=== PATIENT | male | born 1985 | race Caucasian/White ===

== ENCOUNTER 2018-09-16 13:19 | Inpatient (IN) | payer OTHER ==
[2018-09-16] MEDS ORDERED: ONDANSETRON 4 MG/2 ML VIAL ONE (14:19)
--- NOTE | 2018-09-16 14:19 | RAD REPORT ---
EXAM DESCRIPTION: RAD - Chest Single View - 09/16/2018 2:03 pm CLINICAL HISTORY: Dyspnea, cough, shortness of breath COMPARISON: None. TECHNIQUE: AP portable chest image was obtained 1356 hour . FINDINGS: Lung volumes are low. There is significant motion degradation. Portable technique, shallow inspiration and large body habitus limit examination. Central vasculature and lung markings are prominent. There is patchy opacification in the right hilum and medial right lung base. Patchy alveolar opacification seen in the lower left lung field. Heart s ize within normal limits for exam limitations. No pneumothorax or large pleural effusion. No acute ayesha ny abnormality seen. No acute aortic findings suspected. IMPRESSION: Significantly limited examination suspicious for pulmonary edema, failure or volume over load.
[2018-09-16] MEDS ORDERED: NA CHLORIDE 0.9% 1,000 ML ONE ×2 (14:20→15:00)
[2018-09-16] MEDS ORDERED: ACETAMINOPHEN 500 MG TAB ONE (14:20)
[2018-09-16 14:26] LABS: Protime INR 1.11
[2018-09-16] MEDS ORDERED: METHYLPREDNISOLONE 125 MG INJ ONE (14:28)
[2018-09-16] MEDS ORDERED: AZITHROMYCIN 500 MG/250 ML BAG ONE (14:28)
[2018-09-16] MEDS ORDERED: ALBUTEROL 2.5 MG/3 ML NEB SOL ONE (14:28)
[2018-09-16] MEDS ORDERED: CEFTRIAXONE/SWI 1gm 1 GM/10 ML SYR ONE ×2 (14:28→21:09)
[2018-09-16 14:37] LABS: Absolute Lymphocytes (CBC) 0.6 K/uL (0.7-4.9); Absolute Monocytes 0.8 K/uL (0.1-1.3); Absolute Neutrophil 9.6 K/uL (1.8-8.0); Basophils % 0.2 % (0-1.3); Eosinophils % 1.4 % (0-4.4); Lymphocytes % 5.3 % (15.3-44.8); MPV 8.3 fL (7.6-11.3); Monocytes % 7.4 % (3.3-12.3); RBC Red Blood Cell Count 4.59 M/uL (4.33-5.43)
[2018-09-16 14:41] LABS: ALT/SGPT 46 U/L (12-78); AST/SGOT 23 U/L (15-37); Albumin 2.8 g/dL (3.4-5.0); Alkaline Phosphatase 89 U/L (45-117); BUN Blood Urea Nitrogen 18 mg/dL (7-18); Bicarbonate 26 mmol/L (21-32); Bilirubin Direct 0.3 mg/dL (0-0.2); Bilirubin Total 0.8 mg/dL (0.2-1.0); Creatine Phosphokinase 88 U/L (39-308); Glucose Level 154 mg/dL (74-106); Lipase 77 U/L (73-393); Potassium 3.8 mmol/L (3.5-5.1); Protein, Total 6.7 g/dL (6.4-8.2); Sodium Level 141 mmol/L (136-145); Troponin (Emerg Dept Use Only) < 0.02 ng/mL (0.0-0.045)
--- NOTE | 2018-09-16 15:12 | RAD REPORT ---
EXAM DESCRIPTION: CT - Thorax Wo Con - 09/16/2018 2:58 pm CLINICAL HISTORY: Chest pain, dyspnea on exertion COMPARISON: None. TECHNIQUE: Axial 5 mm thick images of the chest were obtained without IV contrast. All CT scans are performed using dose optimization technique as appropriate and may include automated exposure control or mA/KV adjustment according to patient size. FINDINGS: Large masslike consolidation in the posterior right lung base. Air bronchograms are presen t. Bilateral perihilar airspace opacifications seen with air bronchogram formation. Scattered patchy airspace opacities are seen in the left upper lobe. No pleural thickening or pleural effusion. No pne umothorax. A few small nonspecific mediastinal lymph nodes are present. No hilar mass. No gross aortic or pulmon nancy artery finding suspected. Assessment is limited in the absence of IV contrast. No pericardial th ickening or effusion. No chest wall mass or abnormal axillary lymphadenopathy. Limited upper abdomen imaging shows fatty infiltration of the liver. IMPRESSION: Large masslike consolidation posterior gutter on the right typical for pneumonia. Bilateral perihilar airspace opacification which could be additional infiltrate sites or concurrent p ulmonary edema. Left lower lung field airspace opacification favored to be pneumonia. Fatty infiltration of the liver.
[2018-09-16 15:28] LABS: Blood Morphology Comment NOT SEEN (NOT SEEN); Platelet Estimate ADEQ; Urine White Blood Cell Casts DIFF
--- NOTE | 2018-09-16 15:28 | EDPHYS ---
Physician Documentation [facility] Name: Charan Vernon Age: 33 yrs Sex: Male : 1985 Arrival Date: 09/16/2018 Time: 13:22 Bed 17 Private MD: Mike Dsouza T ED Physician PlazaBrian mcnultyory HPI: 09/16 14:37 This 33 yrs old Male presents to ER via Wheelchair with complaints of Cough, jr8 Shortness Of Breath, Chest Pain. 14:37 The patient or guardian reports cough, that is intermittent, described as mild, with no jr8 sputum, difficulty breathing. Onset: The symptoms/episode began/occurred acutely, yesterday. 14:37 Severity of symptoms: At their worst the symptoms were moderate, in the emergency jr8 department the symptoms are unchanged. Modifying factors: The symptoms are alleviated by nothing, the symptoms are aggravated by nothing. Associated signs and symptoms: Pertinent positives: fever. The patient has not experienced similar symptoms in the past. The patient has not recently seen a physician. Historical: - Allergies: 13:41 No Known Allergies; aa5 - PMHx: 13:41 None; aa5 - PSHx: 13:41 "throat dilation"; aa5 - Immunization history:: Flu vaccine is up to date. - Social history:: Smoking status: Patient/guardian denies using tobacco. - Ebola Screening: : No symptoms or risks identified at this time. ROS: 14:37 Eyes: Negative for injury, pain, redness, and discharge, ENT: Negative for injury, jr8 pain, and discharge, Neck: Negative for injury, pain, and swelling, Abdomen/GI: Negative for abdominal pain, nausea, vomiting, diarrhea, and constipation, Back: Negative for injury and pain, MS/Extremity: Negative for injury and deformity, Skin: Negative for injury, rash, and discoloration, Neuro: Negative for headache, weakness, numbness, tingling, and seizure. 14:37 Constitutional: Positive for body aches, fever. 14:37 Cardiovascular: Positive for chest pain, Negative for edema, orthopnea, palpitations, paroxysmal nocturnal dyspnea. 14:37 Respiratory: Positive for cough, shortness of breath, wheezing. Exam: 14:37 Eyes: Pupils equal round and reactive to light, extra-ocular motions intact. Lids and jr8 lashes normal. Conjunctiva and sclera are non-icteric and not injected. Cornea within normal limits. Periorbital areas with no swelling, redness, or edema. ENT: Nares patent. No nasal discharge, no septal abnormalities noted. Tympanic membranes are normal and external auditory canals are clear. Oropharynx with no redness, swelling, or masses, exudates, or evidence of obstruction, uvula midline. Mucous membranes moist. Neck: Trachea midline, no thyromegaly or masses palpated, and no cervical lymphadenopathy. Supple, full range of motion without nuchal rigidity, or vertebral point tenderness. No Meningismus. Abdomen/GI: Soft, non-tender, with normal bowel sounds. No distension or tympany. No guarding or rebound. No evidence of tenderness throughout. Back: No spinal tenderness. No costovertebral tenderness. Full range of motion. Skin: Warm, dry with normal turgor. Normal color with no rashes, no lesions, and no evidence of cellulitis. MS/ Extremity: Pulses equal, no cyanosis. Neurovascular intact. Full, normal range of motion. Neuro: Awake and alert, GCS 15, oriented to person, place, time, and situation. Cranial nerves II-XII grossly intact. Motor strength 5/5 in all extremities. Sensory grossly intact. Cerebellar exam normal. Normal gait. 14:37 Cardiovascular: Rate: tachycardic, Rhythm: regular, Pulses: Pulses are 2+ in right radial artery and left radial artery. Heart sounds: normal, normal S1and S2, no S3 or S4, no murmur, no rub, no gallop, Edema: is not appreciated. 14:37 Respiratory: mild respiratory distress is noted, Respirations: labored breathing, tachypnea, Breath sounds: rhonchi, that are moderate, are heard diffusely. Vital Signs: 13:42 BP 99 / 60; Pulse 106; Resp 24 S; Temp 100.0(TE); Pulse Ox 94% on R/A; Weight 133.81 kg aa5 (R); Height 6 ft. 0 in. (182.88 cm) (R); Pain 10/10; 14:30 BP 106 / 65; Pulse 95; Resp 18; Pulse Ox 97% on 2 lpm NC; hj 15:30 BP 105 / 54; Pulse 103; Resp 18; Pulse Ox 95% on 2 lpm NC; hj 16:14 BP 104 / 60; Pulse 100; Resp 18; Pulse Ox 96% on 2 lpm NC; hj 13:42 Body Mass Index 40.01 (133.81 kg, 182.88 cm) aa5 MDM: 13:47 Patient medically screened. [facility] 15:19 Data reviewed: vital signs, nurses notes, lab test result(s), EKG, radiologic studies, jr CT scan, plain films. Data interpreted: Pulse oximetry: on room air is 94 %. Interpretation: normal. Counseling: I had a detailed discussion with the patient and/or guardian regarding: the historical points, exam findings, and any diagnostic results supporting the discharge/admit diagnosis, lab results, radiology results, the need for further work-up and treatment in the hospital. 15:26 Physician consultation: Ciaran Lagunas MD was called at 15:26, was contacted at 15:26, jr8 regarding admission, to the telemetry unit. consult, patient's condition, and will see patient. 09/16 13:48 Order name: Basic Metabolic Panel; Complete Time: 14:43 [facility] 09/16 13:48 Order name: Blood Culture Adult (2) [facility] 09/16 13:48 Order name: CBC with Diff; Complete Time: 15:35 [facility] 09/16 13:48 Order name: CPK; Complete Time: 14:43 [facility] 09/16 13:48 Order name: Lactate; Complete Time: 14:43 [facility] 09/16 13:48 Order name: LFT's; Complete Time: 14:43 [facility] 09/16 13:48 Order name: Lipase; Complete Time: 14:43 09/16 13:48 Order name: Procalcitonin; Complete Time: 15:10 09/16 13:48 Order name: Protime (+inr); Complete Time: 14:40 [facility] 09/16 13:48 Order name: Ptt, Activated; Complete Time: 14:40 [facility] 09/16 13:48 Order name: Troponin (emerg Dept Use Only); Complete Time: 14:43 09/16 13:48 Order name: Urine Microscopic Only [facility] 09/16 14:42 Order name: CBC Smear Scan [facility] 09/16 15:30 Order name: Manual Differential; Complete Time: 15:35 [facility] 09/16 13:48 Order name: Chest Single View XRAY; Complete Time: 14:40 09/16 13:48 Order name: Accucheck; Complete Time: 14:10 09/16 13:48 Order name: Cardiac monitoring; Complete Time: 13:50 09/16 13:48 Order name: EKG - Nurse/Tech; Complete Time: 13:50 09/16 13:48 Order name: IV Saline Lock - Large Bore; Complete Time: 13:51 09/16 13:48 Order name: Labs collected and sent; Complete Time: 14:10 09/16 13:48 Order name: O2 Per Protocol; Complete Time: 13:51 09/16 14:40 Order name: CT Chest Wo Con; Complete Time: 15:17 09/16 15:33 Order name: Influenza Screen (A EDMA 09/16 13:48 Order name: O2 Sat Monitoring; Complete Time: 13:51 Administered Medications: 13:50 Drug: Acetaminophen 1000 mg Route: PO; hj 14:52 Follow up: Response: No adverse reaction hj 14:10 Drug: NS 0.9% (30 ml/kg) 30 ml/kg Route: IV; Rate: bolus; Site: right antecubital; hj 16:28 Follow up: IV Status: Completed infusion hj 14:11 Drug: Zofran 4 mg Route: IVP; Site: right antecubital; hj 14:34 Follow up: Response: No adverse reaction hj 14:24 Drug: Albuterol 2.5 mg Route: Inhalation; hj 14:24 Drug: SOLU-Medrol 125 mg Route: IVP; Site: right antecubital; hj 14:34 Follow up: Response: No adverse reaction hj 14:24 Drug: Rocephin 1 grams Route: IV; Rate: calculated rate; Site: right antecubital; hj 16:15 Follow up: IV Status: Completed infusion hj 14:24 Drug: Zithromax 500 mg Route: IVPB; Infused Over: 1 hrs; Site: right antecubital; hj 16:15 Follow up: IV Status: Completed infusion hj 14:34 Drug: Albuterol 2.5 mg Route: Inhalation; hj 14:52 Drug: Albuterol 2.5 mg Route: Inhalation; Disposition: 17:15 Co-signature as Attending Physician, Rogelio Plaza MD. gs Disposition: 09/16/18 15:27 Hospitalization ordered by Ciaran Lagunas for Inpatient Admission. Preliminary diagnosis are Pneumonia due to other specified bacteria, Sepsis. - Bed requested for Telemetry/MedSurg (Inpatient). - Status is Inpatient Admission. hj - Condition is Fair. - Problem is new. - Symptoms have improved. UTI on Admission? No Signatures: Dispatcher [employer] EDMS Edith Wilson, REINALDO RN iw Nina Moreno RN RN aa5 Bhupinder Chowdary PA PA jr8 Germain Hawkins RN RN Rogelio Plaza MD MD Corrections: (The following items were deleted from the chart) 14:38 14:37 The patient or guardian reports cough, that is intermittent, described as mild, jr8 with no sputum, jr8 15:50 15:27 Hospitalization Ordered by Ciaran Lagunas MD for Inpatient Admission. Preliminary iw diagnosis is Pneumonia due to other specified bacteria; Sepsis. Bed requested for Telemetry/MedSurg (Inpatient). Status is Inpatient Admission. Condition is Fair. Problem is new. Symptoms have improved. UTI on Admission? No. jr8 16:30 15:50 09/16/2018 15:27 Hospitalization Ordered by Ciarna Lagunas MD for Inpatient hj Admission. Preliminary diagnosis is Pneumonia due to other specified bacteria; Sepsis. Bed requested for Telemetry/MedSurg (Inpatient). Status is Inpatient Admission. Condition is Fair. Problem is new. Symptoms have improved. UTI on Admission? No. iw
--- NOTE | 2018-09-16 15:28 | ER ---
Nurse's Notes [facility] Name: Charan Vernon Age: 33 yrs Sex: Male : 1985 Arrival Date: 09/16/2018 Time: 13:22 Bed 17 Private MD: Mike Dsouza T Diagnosis: Pneumonia due to other specified bacteria;Sepsis Presentation: 09/16 13:40 Presenting complaint: Patient states: cough, SOB, and chest pain that began yesterday. aa5 Tachypnea noted, pt appears uncomfortable and restless. Transition of care: patient was not received from another setting of care. Onset of symptoms was September 2018. Risk Assessment: Do you want to hurt yourself or someone else? Patient reports no desire to harm self or others. Care prior to arrival: None. 13:40 Method Of Arrival: Wheelchair aa5 13:40 Acuity: ELAN 2 aa5 13:44 Initial Sepsis Screen: Does the patient meet any 2 criteria? RR > 20 per min. Yes Does hj the patient have a suspected source of infection? Yes:. Triage Assessment: 13:44 General: Appears in no apparent distress. uncomfortable, obese, Behavior is calm, hj cooperative, appropriate for age. Respiratory: Reports shortness of breath Onset: The symptoms/episode began/occurred suddenly, the patient has mild shortness of breath. Historical: - Allergies: 13:41 No Known Allergies; aa5 - PMHx: 13:41 None; aa5 - PSHx: 13:41 "throat dilation"; aa5 - Immunization history:: Flu vaccine is up to date. - Social history:: Smoking status: Patient/guardian denies using tobacco. - Ebola Screening: : No symptoms or risks identified at this time. Screenin:43 Abuse screen: Denies threats or abuse. Denies injuries from another. Nutritional hj screening: No deficits noted. Tuberculosis screening: No symptoms or risk factors identified. Fall Risk None identified. Assessment: 13:43 Pain: Complains of pain in chest. Cardiovascular: Reports chest pain, Rhythm is. hj Respiratory: Airway is patent Respiratory effort is even, unlabored, Respiratory pattern is regular, symmetrical, Breath sounds are clear. 13:43 General: Appears in no apparent distress. uncomfortable, Behavior is calm, cooperative, hj appropriate for age. Neuro: Level of Consciousness is awake, alert, obeys commands, Oriented to person, place, time, situation, Appropriate for age. GI: No signs and/or symptoms were reported involving the gastrointestinal system. : No signs and/or symptoms were reported regarding the genitourinary system. EENT: No signs and/or symptoms were reported regarding the EENT system. Derm: No signs and/or symptoms reported regarding the dermatologic system. Musculoskeletal: No signs and/or symptoms reported regarding the musculoskeletal system. 14:30 Reassessment: Patient and/or family updated on plan of care and expected duration. Pain hj level reassessed. Patient is alert, oriented x 3, equal unlabored respirations, skin warm/dry/pink. awaiting POc; Patient states feeling better. Patient states symptoms have improved. 16:12 Reassessment: Patient and/or family updated on plan of care and expected duration. Pain hj level reassessed. Patient is alert, oriented x 3, equal unlabored respirations, skin warm/dry/pink. awaiting call back from RN;. Vital Signs: 13:42 BP 99 / 60; Pulse 106; Resp 24 S; Temp 100.0(TE); Pulse Ox 94% on R/A; Weight 133.81 kg aa5 (R); Height 6 ft. 0 in. (182.88 cm) (R); Pain 10/10; 14:30 BP 106 / 65; Pulse 95; Resp 18; Pulse Ox 97% on 2 lpm NC; hj 15:30 BP 105 / 54; Pulse 103; Resp 18; Pulse Ox 95% on 2 lpm NC; hj 16:14 BP 104 / 60; Pulse 100; Resp 18; Pulse Ox 96% on 2 lpm NC; hj 13:42 Body Mass Index 40.01 (133.81 kg, 182.88 cm) aa5 ED Course: 13:22 Patient arrived in ED. rg4 13:23 Mike Dsouza MD is Private Physician. rg4 13:40 Triage completed. aa5 13:41 Arm band placed on. aa5 13:43 Germain Hawkins, REINALDO is Primary Nurse. hj 13:44 Patient has correct armband on for positive identification. Placed in gown. Bed in low hj position. Call light in reach. Side rails up X 1. 13:47 [facility] jr8 13:47 Rogelio Plaza MD is Attending Physician. jr8 13:59 EKG done, by electroencephalograph technologist. [facility] 14:01 X-ray completed. Portable x-ray completed in exam room. Patient tolerated procedure sw well. 14:01 No provider procedures requiring assistance completed. Inserted saline lock: 20 gauge hj in right antecubital area, using aseptic technique. Blood collected. 14:05 Chest Single View XRAY In Process Unspecified. EDMS 14:17 Initial lab(s) drawn, by me, sent to lab. First set of blood cultures drawn by me, hj Second set of blood cultures drawn by me. 14:[address] vr 14:58 CT completed. Patient tolerated procedure well. Patient moved back from CT. nj 14:59 CT Chest Wo Con In Process Unspecified. EDMS 15:26 Ciaran Lagunas MD is Hospitalizing Provider. jr8 16:27 Patient admitted, IV remains in place. intact. hj Administered Medications: 13:50 Drug: Acetaminophen 1000 mg Route: PO; hj 14:52 Follow up: Response: No adverse reaction hj 14:10 Drug: NS 0.9% (30 ml/kg) 30 ml/kg Route: IV; Rate: bolus; Site: right antecubital; hj 16:28 Follow up: IV Status: Completed infusion hj 14:11 Drug: Zofran 4 mg Route: IVP; Site: right antecubital; hj 14:34 Follow up: Response: No adverse reaction hj 14:24 Drug: Albuterol 2.5 mg Route: Inhalation; hj 14:24 Drug: SOLU-Medrol 125 mg Route: IVP; Site: right antecubital; hj 14:34 Follow up: Response: No adverse reaction hj 14:24 Drug: Rocephin 1 grams Route: IV; Rate: calculated rate; Site: right antecubital; hj 16:15 Follow up: IV Status: Completed infusion hj 14:24 Drug: Zithromax 500 mg Route: IVPB; Infused Over: 1 hrs; Site: right antecubital; hj 16:15 Follow up: IV Status: Completed infusion hj 14:34 Drug: Albuterol 2.5 mg Route: Inhalation; hj 14:52 Drug: Albuterol 2.5 mg Route: Inhalation; hj Outcome: 15:27 Decision to Hospitalize by Provider. jr8 16:27 Admitted to Tele accompanied by tech, family with patient, via wheelchair, room 423, hj with oxygen, with chart, Report called to REINALDO Mcfarlane 16:27 Condition: stable 16:27 Instructed on the need for admit, Demonstrated understanding of instructions. 16:30 Patient left the ED. sis Signatures: Dispatcher [employer] EDMS Nina Moreno, RN RN aa5 Bev Ellis Josh, PA PA jr8 Warren, Shannon sw Joaquin, Henry, RN RN hj Garcia, Rubi 4 Alcon Morales, Sandi 3 Corrections: (The following items were deleted from the chart) 13:45 13:40 Presenting complaint: Patient states: cough, SOB, and chest pain that began aa5 yesterday. aa5 13:45 13:40 Acuity: ELAN 3 aa5 aa5 16:14 16:14 BP 105 / 54; Pulse 103bpm; Resp 18bpm; Pulse Ox 95% 2 lpm Nasal Cannula; sis alegre
[2018-09-16] MEDS: NA CHLORIDE 0.9% 1,000 ML IV SCH ×2 (16:49→21:06)
[2018-09-16] MEDS: ENOXAPARIN 40 MG/0.4 ML SQ SCH (16:50)
[2018-09-16] MEDS ORDERED: POTASSIUM CL SA 10 MEQ TAB PO ONE (17:00)
--- NOTE | 2018-09-16 17:26 | EKG ---
Test Date: 2018-09-16 Test Time: 13:49:46 Maintenance Mechanic Engine: MAX MEASUREMENT RESULTS: Intervals: Rate: 100 IN: 140 QRSD: 88 QT: 324 QTc: 417 [place]: P: 47 IN: 140 QRS: -6 T: 14 INTERPRETIVE STATEMENTS: Normal sinus rhythm Normal ECG No previous ECG available for comparison Electronically Signed On 09-16-18 17:25:08 [employer] by David Levy
[2018-09-16 18:28] VITALS: BMI 41.4
[2018-09-16] MEDS: IBUPROFEN 400 MG TAB PO PRN ×2 (18:47→23:03)
--- NOTE | 2018-09-16 19:29 | P.HP ---
Certification for Inpatient Patient admitted to: Inpatient Practitioner: I am a practitioner with admitting privileges, knowledge of patient current condition, hospital course, and medical plan of care. Services: Services provided to patient in accordance with Admission requirements found in Title 42 Section 412.3 of the Code of Federal Regulations Patient History Date of Service: 09/16/18 Primary Care Provider: None Reason for admission: shortness of breath History of Present Illness: This is a 33-year-old male with a past medical history admitted for chest pain and trouble catching his breath for the past few days. He reports progressively worsening cough, weakness for the past 2-3 days. He states that started in the right upper quadrant area of the abdomen, moved up to the chest, no complaints of chest tightness. He also reports subjective fevers and chills. He brought himself to the ER. In the ER, he was found to be slightly hypertensive with blood pressure 99/60, elevated pro calcitonin, elevated WBC count left shift and satting 94% on room air. His chest x-ray was positive for suspected pneumonia, CT chest done in the ER was positive for bilateral pneumonia with consolidation. In the ER, patient received Rocephin and Zithromax along with IV fluids. At the time of my exam, patient was alert oriented x3, in mild distress secondary to chest tightness/pain and cough, and was hemodynamically stable. Allergies No Known Allergies Allergy (Unverified 09/16/18 16:27) Home Medications: Omeprazole [Prilosec] 40 mg PO DAILY 09/16/18 Sertraline HCl 50 mg PO DAILY 09/16/18 - Past Medical/Surgical History Has patient received pneumonia vaccine in the past: No Diabetic: No -: GERD -: Throat Stricture -: Throat Dilatation - Social History Smoking Status: Never smoker Alcohol use: Yes CD- Drugs: No Caffeine use: No Place of Residence: Home Review of Systems 10-point ROS is otherwise unremarkable Physical Examination - Vital Signs Temperature: 97.6 F Blood Pressure: 120/61 Pulse: 106 Respirations: 18 Pulse Ox (%): 95 - Physical Exam General: Alert, In no apparent distress, Oriented x3 HEENT: Atraumatic, PERRLA, Mucous membr. moist/pink, EOMI, Sclerae nonicteric Neck: Supple, 2+ carotid pulse no bruit, No LAD, Without JVD or thyroid abnormality Respiratory: Diminished Cardiovascular: Regular rate/rhythm, Normal S1 S2 Gastrointestinal: Normal bowel sounds, No tenderness Musculoskeletal: No tenderness Integumentary: No rashes Neurological: Normal gait, Normal speech, Normal strength at 5/5 x4 extr, Normal tone, Normal affect Lymphatics: No axilla or inguinal lymphadenopathy - Studies Laboratory Data (last 24 hrs) 09/16/18 14:00: PT 13.0 H, INR 1.11, APTT 32.3 09/16/18 14:00: WBC 11.3 H, Hgb 13.4 L, Hct 40.0, Plt Count 187 09/16/18 14:00: Sodium 141, Potassium 3.8, BUN 18, Creatinine 1.05, Glucose 154 H, Total Bilirubin 0.8, AST 23, ALT 46, Alkaline Phosphatase 89, Lipase 77 Assessment and Plan - Problems (Diagnosis) (1) Bilateral pneumonia Onset Date: 09/17/18 Current Visit: Yes Status: Acute Qualifiers: Pneumonia type: due to unspecified organism Lung location: unspecified part of lung Qualified Code(s): J18.9 - Pneumonia, unspecified organism (2) Sepsis Onset Date: 09/17/18 Current Visit: Yes Status: Acute Qualifiers: Sepsis type: sepsis due to unspecified organism Qualified Code(s): A41.9 - Sepsis, unspecified organism - Plan This is a 33 yr old male with: Bilateral pneumonia (Acute) J18.9 Sepsis (Acute) A41.9 IV antiobiotics with Rocephin and Zithromax. sepsis protocol, IV fluids Hemodynamically stable at this time. Continue to monitor Labs tomorrow morning DVT prophylaxis: Lovenox GI prophylaxis: None Diet: Regular Disposition: Pending symptomatic improvement - Advance Directives Does patient have a Living Will: No Does patient have a Durable POA for Healthcare: No
[2018-09-16] MEDS ORDERED: CEFTRIAXONE 1 GM/NS 50 ML 1 GM/50 ML BAG IV SCH (21:00)
[2018-09-16 22:38] LABS: Urine Appearance CLEAR; Urine Bilirubin NEGATIVE (NEG); Urine Blood NEGATIVE (NEG); Urine Color YELLOW; Urine Glucose 3+ (NEG); Urine Protein NEGATIVE (NEG); Urine pH 6.5 (5.0-7.0)
[2018-09-16 22:41] LABS: Urine Microscopic Reflex NO UMIC
[2018-09-17 04:14] LABS: Absolute Lymphocytes (CBC) 0.7 K/uL (0.7-4.9); Absolute Monocytes 0.9 K/uL (0.1-1.3); Absolute Neutrophil 12.9 K/uL (1.8-8.0); Basophils % 0.1 % (0-1.3); Hematocrit 37.2 % (39.6-49.0); Lymphocytes % 4.9 % (15.3-44.8); MPV 8.1 fL (7.6-11.3); Monocytes % 6.1 % (3.3-12.3); RBC Red Blood Cell Count 4.22 M/uL (4.33-5.43)
[2018-09-17 04:29] LABS: Albumin 2.3 g/dL (3.4-5.0); Bilirubin Total 0.4 mg/dL (0.2-1.0); Phosphorus 1.8 mg/dL (2.5-4.9); Potassium 4.5 mmol/L (3.5-5.1); Protein, Total 6.2 g/dL (6.4-8.2)
[2018-09-17] MEDS: POTASS/SODIUM PHOSPHATE 1 PKT POWD.PACK PO SCH ×3 (05:21→07:03)
[2018-09-17] MEDS: IBUPROFEN 400 MG TAB PO PRN ×4 (05:23→20:24)
[2018-09-17] MEDS: PANTOPRAZOLE 40MG TABLET PO SCH (06:13)
[2018-09-17] MEDS: SERTRALINE HCL 50 MG TAB PO SCH (08:44)
[2018-09-17] MEDS: ENOXAPARIN 40 MG/0.4 ML SQ SCH (08:44)
[2018-09-17] MEDS: AZITHROMYCIN IV 500 MG in NA CHLORIDE 0.9% 250 ML IVPB SCH (08:44)
[2018-09-17] MEDS: CEFTRIAXONE/SWI 1gm 1 GM/10 ML SYR IV SCH ×2 (08:45→20:18)
--- NOTE | 2018-09-17 16:08 | P.PN ---
Subjective Date of Service: 09/17/18 Primary Care Provider: None Chief Complaint: shortness of breath Subjective: No C/O voiced, Improving Patient seen and examined at bedside. No family at bedside. Chart reviewed and case discussed with nursing staff. Reports improvement. Denies any chest pain this morning, shortness of breath is improved, states he is feeling better, though not back to baseline yet. Review of Systems 10-point ROS is otherwise unremarkable Physical Examination - Vital Signs Temperature: 97.6 F Blood Pressure: 120/61 Pulse: 106 Respirations: 18 Pulse Ox (%): 95 - Physical Exam General: Alert, In no apparent distress, Oriented x3 HEENT: Atraumatic, PERRLA, EOMI Neck: Supple, JVD not distended Respiratory: Clear to auscultation bilaterally, Normal air movement Cardiovascular: Regular rate/rhythm, Normal S1 S2 Gastrointestinal: Normal bowel sounds, No tenderness Musculoskeletal: No tenderness Integumentary: No rashes Neurological: Normal speech, Normal tone, Normal affect Lymphatics: No axilla or inguinal lymphadenopathy Assessment And Plan - Current Problems (Diagnosis) (1) Bilateral pneumonia Onset Date: 09/17/18 Current Visit: Yes Status: Acute Qualifiers: Pneumonia type: due to unspecified organism Lung location: unspecified part of lung Qualified Code(s): J18.9 - Pneumonia, unspecified organism (2) Sepsis Onset Date: 09/17/18 Current Visit: Yes Status: Acute Qualifiers: Sepsis type: sepsis due to unspecified organism Qualified Code(s): A41.9 - Sepsis, unspecified organism - Plan This is a 33 yr old male with: Bilateral pneumonia (Acute) J18.9 Sepsis (Acute) A41.9 Improving Continue IV antibiotics with Rocephin and Zithromax, day #2. sepsis protocol, IV fluids Hemodynamically stable at this time. Continue to monitor Pending cultures, no growth 24 hr DVT prophylaxis: Lovenox GI prophylaxis: None Diet: Regular Disposition: Pending symptomatic improvement. Likely discharge home in the next 24-48 hr on oral azithromycin and Augmentin to complete a 12 day course.
[2018-09-17] MEDS: NA CHLORIDE 0.9% 1,000 ML IV SCH ×2 (16:21→22:30)
[2018-09-18] MEDS: NA CHLORIDE 0.9% 1,000 ML IV SCH ×3 (04:44→18:30)
[2018-09-18] MEDS: IBUPROFEN 400 MG TAB PO PRN ×4 (04:44→18:51)
[2018-09-18 04:56] LABS: Absolute Lymphocytes (CBC) 1.2 K/uL (0.7-4.9); Absolute Monocytes 1.5 K/uL (0.1-1.3); Absolute Neutrophil 15.8 K/uL (1.8-8.0); Basophils % 0.1 % (0-1.3); Eosinophils % 0.3 % (0-4.4); Hematocrit 37.9 % (39.6-49.0); Lymphocytes % 6.7 % (15.3-44.8); MPV 8.1 fL (7.6-11.3); Monocytes % 8.3 % (3.3-12.3); RBC Red Blood Cell Count 4.38 M/uL (4.33-5.43)
[2018-09-18 05:08] LABS: ALT/SGPT 38 U/L (12-78); AST/SGOT 24 U/L (15-37); Albumin 2.3 g/dL (3.4-5.0); Alkaline Phosphatase 101 U/L (45-117); BUN Blood Urea Nitrogen 26 mg/dL (7-18); Bicarbonate 27 mmol/L (21-32); Bilirubin Total 0.3 mg/dL (0.2-1.0); Glucose Level 123 mg/dL (74-106); Phosphorus 2.8 mg/dL (2.5-4.9); Potassium 3.8 mmol/L (3.5-5.1); Protein, Total 6.1 g/dL (6.4-8.2); Sodium Level 143 mmol/L (136-145)
[2018-09-18] MEDS ORDERED: POTASSIUM CL SA 10 MEQ TAB PO ONE (05:18)
[2018-09-18] MEDS: PANTOPRAZOLE 40MG TABLET PO SCH (05:38)
--- NOTE | 2018-09-18 08:20 | RAD REPORT ---
EXAM DESCRIPTION: [facility] Single View09/18/2018 6:41 am CLINICAL HISTORY: Chest pain COMPARISON: September 2010 FINDINGS: No significant change in the right basilar consolidation. Additional bilateral pulmonary opacities have mildly improved. Heart is normal size
[2018-09-18] MEDS: AZITHROMYCIN IV 500 MG in NA CHLORIDE 0.9% 250 ML IVPB SCH (09:34)
[2018-09-18] MEDS: SERTRALINE HCL 50 MG TAB PO SCH (09:35)
[2018-09-18] MEDS: ENOXAPARIN 40 MG/0.4 ML SQ SCH (09:35)
[2018-09-18] MEDS: CEFTRIAXONE/SWI 1gm 1 GM/10 ML SYR IV SCH (09:35)
[2018-09-18] MEDS: FLUTICASONE 50MCG NASAL SPRAY NAS SCH ×2 (12:27→20:05)
[2018-09-18] MEDS: LACTOBACILLUS/ACIDOPHILUS TAB PO SCH ×2 (13:31→20:05)
--- NOTE | 2018-09-18 17:56 | RAD REPORT ---
EXAM DESCRIPTION: US - Abdomen Exam Complete - 09/18/2018 5:32 pm CLINICAL HISTORY: Abdominal pain. abdominal pain COMPARISON: No comparisons FINDINGS: Diffuse fatty liver is present. No focal liver lesions or intrahepatic biliary dilatation is seen. The gallbladder demonstrates no gallstones, pericholecystic fluid or gallbladder wall thickening. Co mmon bile duct is normal in caliber measuring 5 millimeters. Both kidneys are normal in size, shape and echotexture. No hydronephrosis, focal lesion of concern or perinephric fluid. The spleen is normal in size measuring 12 cm. The pancreas and aorta are obscured by bowel gas. The visualized aspects of the IVC are grossly normal. IMPRESSION: Diffuse fatty liver.
--- NOTE | 2018-09-18 18:41 | P.PN ---
Subjective Date of Service: 09/18/18 Primary Care Provider: None Chief Complaint: shortness of breath Subjective: Improving Patient seen and examined at bedside. No family at bedside. Chart reviewed and case discussed with nursing staff. Reports improvement. Denies any chest pain this morning, shortness of breath is improved, states he is feeling better, though not back to baseline yet. Review of Systems 10-point ROS is otherwise unremarkable Physical Examination - Vital Signs Temperature: 98.7 F Blood Pressure: 156/87 Pulse: 82 Respirations: 18 Pulse Ox (%): 93 - Physical Exam General: Alert, In no apparent distress, Oriented x3 HEENT: Atraumatic, PERRLA, EOMI Neck: Supple, JVD not distended Respiratory: Clear to auscultation bilaterally, Normal air movement Cardiovascular: Regular rate/rhythm, Normal S1 S2 Gastrointestinal: Normal bowel sounds, No tenderness Musculoskeletal: No tenderness Integumentary: No rashes Neurological: Normal speech, Normal tone, Normal affect Lymphatics: No axilla or inguinal lymphadenopathy Assessment And Plan - Current Problems (Diagnosis) (1) Bilateral pneumonia Onset Date: 09/17/18 Current Visit: Yes Status: Acute Qualifiers: Pneumonia type: due to unspecified organism Lung location: unspecified part of lung Qualified Code(s): J18.9 - Pneumonia, unspecified organism (2) Sepsis Onset Date: 09/17/18 Current Visit: Yes Status: Acute Qualifiers: Sepsis type: sepsis due to unspecified organism Qualified Code(s): A41.9 - Sepsis, unspecified organism - Plan This is a 33 yr old male with: Bilateral pneumonia (Acute) J18.9 Sepsis (Acute) A41.9 Improving Continue IV antibiotics with Rocephin and Zithromax, day #3. sepsis protocol, IV fluids Hemodynamically stable at this time. Continue to monitor Pending cultures, no growth 24 hr DVT prophylaxis: Lovenox GI prophylaxis: None Diet: Regular Disposition: Pending symptomatic improvement. Likely discharge home in the next 24-48 hr on oral azithromycin and Augmentin to complete a 12 day course.
[2018-09-18] MEDS: Levofloxacin500mg IV 500 MG/100 ML BAG IV SCH (20:06)
[2018-09-19] MEDS: NA CHLORIDE 0.9% 1,000 ML IV SCH ×2 (03:58→15:29)
[2018-09-19] MEDS: IBUPROFEN 400 MG TAB PO PRN ×4 (03:59→22:15)
[2018-09-19 05:49] LABS: ALT/SGPT 50 U/L (12-78); AST/SGOT 26 U/L (15-37); Albumin 2.3 g/dL (3.4-5.0); Alkaline Phosphatase 96 U/L (45-117); BUN Blood Urea Nitrogen 16 mg/dL (7-18); Bicarbonate 27 mmol/L (21-32); Bilirubin Total 0.6 mg/dL (0.2-1.0); Glucose Level 152 mg/dL (74-106); Potassium 3.9 mmol/L (3.5-5.1); Protein, Total 6.1 g/dL (6.4-8.2); Sodium Level 138 mmol/L (136-145)
[2018-09-19 05:56] LABS: Absolute Monocytes 0.8 K/uL (0.1-1.3); Basophils % 0.1 % (0-1.3); Eosinophils % 1.1 % (0-4.4); Hematocrit 38.9 % (39.6-49.0); Lymphocytes % 6.4 % (15.3-44.8); MPV 7.8 fL (7.6-11.3); Monocytes % 5.5 % (3.3-12.3); RBC Red Blood Cell Count 4.53 M/uL (4.33-5.43)
[2018-09-19] MEDS: PANTOPRAZOLE 40MG TABLET PO SCH (06:09)
[2018-09-19] MEDS ORDERED: POTASSIUM CL SA 10 MEQ TAB PO ONE (06:30)
[2018-09-19 08:37] LABS: Platelet Estimate ADEQ; Toxic Granulation 2+; Urine White Blood Cell Casts DIFF
[2018-09-19 08:38] LABS: Blood Morphology Comment NOTED (NOT SEEN); Polychromasia 1+
[2018-09-19] MEDS: ENOXAPARIN 40 MG/0.4 ML SQ SCH (08:46)
[2018-09-19] MEDS: LACTOBACILLUS/ACIDOPHILUS TAB PO SCH ×2 (08:46→21:14)
[2018-09-19] MEDS: FLUTICASONE 50MCG NASAL SPRAY NAS SCH ×2 (08:46→21:15)
[2018-09-19] MEDS: SERTRALINE HCL 50 MG TAB PO SCH (08:47)
--- NOTE | 2018-09-19 12:57 | RAD REPORT ---
EXAM DESCRIPTION: RAD - Chest Pa And Lat (2 Views) - 09/19/2018 12:43 pm CLINICAL HISTORY: Pneumonia COMPARISON: Portable chest September 18, CT chest September 16 TECHNIQUE: PA and lateral views of the chest were obtained. FINDINGS: The lungs are slightly underinflated. Left lung base pneumonia changes are fractionally i mproved. Right lung base pneumonia changes are not significantly different. Pleural effusion on the r ight has increased. Heart size is normal and central vasculature is within normal limits. No pneumot horax. No acute bony finding noted. No aortic abnormality. IMPRESSION: Worsening right-sided pleural effusion without clear change to the lung base pneumonia. Smaller left lung base pneumonia is fractionally improved.
--- NOTE | 2018-09-19 17:24 | P.PN ---
Subjective Date of Service: 09/19/18 Primary Care Provider: None Chief Complaint: shortness of breath Patient seen and examined at bedside. No family at bedside. Chart reviewed and case discussed with nursing staff. Reports improvement. Denies any chest pain this morning, shortness of breath is improved, states he is feeling better, though not back to baseline yet. Review of Systems 10-point ROS is otherwise unremarkable Physical Examination - Vital Signs Temperature: 99.1 F Blood Pressure: 138/82 Pulse: 90 Respirations: 18 Pulse Ox (%): 92 - Physical Exam General: Alert, In no apparent distress, Oriented x3 HEENT: Atraumatic, PERRLA, EOMI Neck: Supple, JVD not distended Respiratory: Clear to auscultation bilaterally, Normal air movement Cardiovascular: Regular rate/rhythm, Normal S1 S2 Gastrointestinal: Normal bowel sounds, No tenderness Musculoskeletal: No tenderness Integumentary: No rashes Neurological: Normal speech, Normal tone, Normal affect Lymphatics: No axilla or inguinal lymphadenopathy Assessment And Plan - Current Problems (Diagnosis) (1) Bilateral pneumonia Onset Date: 09/17/18 Current Visit: Yes Status: Acute Qualifiers: Pneumonia type: due to unspecified organism Lung location: unspecified part of lung Qualified Code(s): J18.9 - Pneumonia, unspecified organism (2) Sepsis Onset Date: 09/17/18 Current Visit: Yes Status: Acute Qualifiers: Sepsis type: sepsis due to unspecified organism Qualified Code(s): A41.9 - Sepsis, unspecified organism - Plan This is a 33 yr old male with: Bilateral pneumonia (Acute) J18.9 Sepsis (Acute) A41.9 Improving Discontinued Continue IV Rocephin and Zithromax, day #3. Continue IV Levaquin, day 2. sepsis protocol, IV fluids Hemodynamically stable at this time. Continue to monitor Blood cultures no growth. Repeat chest x-ray with worsening right pleural effusion. We will go ahead and repeat a CT chest, will get pulmonary consult. DVT prophylaxis: Lovenox GI prophylaxis: None Diet: Regular Disposition: Pending symptomatic improvement.
--- NOTE | 2018-09-19 18:05 | RAD REPORT ---
EXAM DESCRIPTION: CT - Thorax W/ Con - 09/19/2018 5:34 pm CLINICAL HISTORY: Chest pain COMPARISON: September 16, 2018 CT TECHNIQUE: Computed axial tomography of the chest was obtained. 100 cc Isovue 300 was administered i ntravenously. All CT scans are performed using dose optimization technique as appropriate and may include automated exposure control or mA/KV adjustment according to patient size. FINDINGS: Left lung alveolar opacities have mildly improved. The right lung alveolar opacities have also mildly improved. . A right lower lobe consolidation has mildly improved. Mild right lower lobe atelectasis has develop ed. Minimal pericardial effusion A small to moderate partially loculated right pleural effusion is suspected. A tiny left pleural effu hugo is noted Fatty infiltration liver IMPRESSION: Bilateral pneumonia has mildly improved Small to moderate partially loculated right pleural effusion Right basilar atelectasis
[2018-09-19] MEDS: Levofloxacin500mg IV 500 MG/100 ML BAG IV SCH (21:15)
[2018-09-20] MEDS: PANTOPRAZOLE 40MG TABLET PO SCH (05:38)
[2018-09-20 07:26] LABS: BUN Blood Urea Nitrogen 15 mg/dL (7-18); Bicarbonate 27 mmol/L (21-32); Glucose Level 136 mg/dL (74-106); Potassium 4.2 mmol/L (3.5-5.1); Sodium Level 139 mmol/L (136-145)
[2018-09-20] MEDS: LACTOBACILLUS/ACIDOPHILUS TAB PO SCH (09:05)
[2018-09-20] MEDS: SERTRALINE HCL 50 MG TAB PO SCH (09:05)
[2018-09-20] MEDS: FLUTICASONE 50MCG NASAL SPRAY NAS SCH (09:06)
[2018-09-20 10:07] VITALS: O2SAT 94
--- NOTE | 2018-09-20 11:07 | RAD REPORT ---
EXAM DESCRIPTION: US - Chest - 09/20/2018 11:01 am CLINICAL HISTORY: Right pleural effusion COMPARISON: CT imaging September 19 FINDINGS: Sonographic evaluation of the right chest was performed to evaluate for possible thoracent esis. CT examination was reviewed. At sonography the right lung base pleural fluid collection is seen. This is heterogeneous and increas ed in echogenicity. Septation or stranding is present within this fluid. Sonographic findings would i ndicate loculated and thickened pleural fluid. This type of fluid response poorly to the usual thorac entesis catheter. IMPRESSION: Right pleural effusion appears thickened and loculated by ultrasound criteria. Ultrasoun d-guided thoracentesis is not likely to be successful.
--- NOTE | 2018-09-20 11:07 | P.CNS ---
Date of Consult: 09/20/18 Primary Care Provider: None Chief Complaint: Pneumonia with a parapneumonic effusion History of Present Illness: Patient is 33 years of age admitted to the hospital with shortness of breath and severe right-sided pleuritic chest pain pain started on Sunday he has pain on slightest movement has a borderline fever some cough congestion no sputum problems started about a week ago as admitted with a diagnosis of right lower lobe pneumonia after sound prior to thoracentesis shows thick loculated effusion Allergies No Known Allergies Allergy (Unverified 09/16/18 16:27) Home Medications: Omeprazole [Prilosec] 40 mg PO DAILY 09/16/18 Sertraline HCl 50 mg PO DAILY 09/16/18 - Past Medical/Surgical History Diabetic: No -: GERD -: Esophageal stricture -: Throat Dilatation - Social History Alcohol use: Yes CD- Drugs: No Caffeine use: No Place of Residence: Home Review of Systems 10-point ROS is otherwise unremarkable Physical Examination Temp Pulse Resp BP Pulse Ox 100.3 F 109 H 18 128/60 94 09/20/18 08:00 09/20/18 08:00 09/20/18 08:00 09/20/18 08:00 09/20/18 08:00 General: Alert, Oriented x3, Mild distress HEENT: Atraumatic Respiratory: Diminished, Crackles/rales (To crackles on the right side) Cardiovascular: No edema, Normal pulses, Regular rate/rhythm - Problems (1) Pleural effusion due to bacterial infection Current Visit: Yes Status: Acute Plan: Patient is 33 years of age admitted with acute onset of right-sided pleuritic chest pain right lower lobe infiltrate and a right-sided parapneumonic effusion which is loculated as per radiology patient's pro calcitonin white count of both elevated his vital signs are stable due to significant amount a chest pain worsening of pleural effusion lead to be transferred to thoracic surgery service for a VATS decortication and broaden his antibiotics to vancomycin and meropenem patient is stable for transfer discuss with the patient and his mother in law
[2018-09-20] MEDS: HYDROCODONE/APAP 5/325 MG TAB PO PRN ×2 (11:52→18:39)
[2018-09-20] MEDS: Meropenem 1,000 MG in NA CHLORIDE 0.9% 100 ML IV SCH ×2 (11:53→16:45)
[2018-09-20] MEDS ORDERED: VANCOMYCIN 2 GM in NA CHLORIDE 0.9% 500 ML IVPB SCH (12:00)
[2018-09-20] MEDS ORDERED: NA CHLORIDE 0.9% 100 ML ONE (12:02)
[2018-09-20] MEDS ORDERED: Meropenem 1000 MG/VIAL IV SCH (17:00)
[2018-09-20 19:20] VITALS: TEMP 99.6
[2018-09-20 22:24] VITALS: BP 120/56
--- NOTE | 2018-09-21 16:44 | P.DS ---
Admission Date: 09/16/18 Discharge Date: 09/20/18 Primary Care Provider: None Disposition: TRANSFER TO [facility] Discharge Condition: GOOD Reason for Admission: Pneumonia with a parapneumonic effusion Consultations: Pulmonology - Problems (1) Bilateral pneumonia Onset Date: 09/17/18 Status: Acute Qualifiers: Pneumonia type: due to unspecified organism Lung location: unspecified part of lung Qualified Code(s): J18.9 - Pneumonia, unspecified organism (2) Sepsis Onset Date: 09/17/18 Status: Acute Qualifiers: Sepsis type: sepsis due to unspecified organism Qualified Code(s): A41.9 - Sepsis, unspecified organism Brief History of Present Illness: This is a 33-year-old male with a past medical history admitted for chest pain and trouble catching his breath for the past few days. He reports progressively worsening cough, weakness for the past 2-3 days. He states that started in the right upper quadrant area of the abdomen, moved up to the chest, no complaints of chest tightness. He also reports subjective fevers and chills. He brought himself to the ER. In the ER, he was found to be slightly hypertensive with blood pressure 99/60, elevated pro calcitonin, elevated WBC count left shift and satting 94% on room air. His chest x-ray was positive for suspected pneumonia, CT chest done in the ER was positive for bilateral pneumonia with consolidation. In the ER, patient received Rocephin and Zithromax along with IV fluids. At the time of my exam, patient was alert oriented x3, in mild distress secondary to chest tightness/pain and cough, and was hemodynamically stable. Hospital Course: Bilateral pneumonia (Acute) J18.9 Sepsis (Acute) A41.9 Patient was admitted for bilateral pneumonia and sepsis. He was started on IV Rocephin and Zithromax for a total of 3 days. His WBC count continued to go up , clinically is slightly improved. His antibiotics were switched to Levaquin for a total of 2 days. Sepsis protocol was followed, he was given IV fluids. He remained hemodynamically stable throughout the stay. Repeat chest x-ray showed worsening right pleural effusion there for a repeat CT chest was done. It was noted that he had loculated worsening right-sided pleural effusion. His antibiotics were broadened to vancomycin and meropenem. Pulmonology was consulted. A chest ultrasound was done for a ultrasound-guided thoracentesis. Per Radiology, effusion was too thick and loculated and therefore the thoracentesis would not be successful. Per pulmonology, patient would need to be transferred to [place] for VATS procedure and a facility where a thoracic surgeon would be available. Transfer was initiated, Doc to doc was done. He was then transferred over to the [facility]. Vital Signs/Physical Exam: Temp Pulse Resp BP Pulse Ox 99.6 F 89 18 120/56 L 93 09/20/18 20:00 09/20/18 20:00 09/20/18 20:00 09/20/18 20:00 09/20/18 20:00 General: Alert, In no apparent distress, Oriented x3 Laboratory Data at Discharge: WBC 15.0 K/uL (4.3-10.9) H D 09/19/18 05:04 Hgb 13.4 g/dL (13.6-17.9) L 09/19/18 05:04 Hct 38.9 % (39.6-49.0) L 09/19/18 05:04 Plt Count 254 K/uL (152-406) 09/19/18 05:04 PT 13.0 SECONDS (9.5-12.5) H 09/16/18 14:00 INR 1.11 09/16/18 14:00 APTT 32.3 SECONDS (24.3-36.9) 09/16/18 14:00 Sodium 139 mmol/L (136-145) 09/20/18 06:52 Potassium 4.2 mmol/L (3.5-5.1) 09/20/18 06:52 BUN 15 mg/dL (7-18) 09/20/18 06:52 Creatinine 0.78 mg/dL (0.55-1.3) 09/20/18 06:52 Glucose 136 mg/dL (74-106) H 09/20/18 06:52 Phosphorus 2.8 mg/dL (2.5-4.9) D 09/18/18 04:23 Magnesium 2.0 mg/dL (1.8-2.4) 09/17/18 03:43 Total Bilirubin 0.6 mg/dL (0.2-1.0) 09/19/18 05:04 AST 26 U/L (15-37) 09/19/18 05:04 ALT 50 U/L (12-78) 09/19/18 05:04 Alkaline Phosphatase 96 U/L (45-117) 09/19/18 05:04 Lipase 121 U/L (73-393) 09/18/18 04:23 Home Medications: Omeprazole [Prilosec] 40 mg PO DAILY 09/16/18 Sertraline HCl 50 mg PO DAILY 09/16/18 Diet: Regular Activity: Ad aminta Time spent managing pt's care (in minutes): 55
== END 2018-09-20 20:20 | disposition short-term general hospital (02) | DRG 871 ==
LOC: ER 13:19 → ERHOLD 15:30 → 4TH 16:28
PROVIDERS: ADMIT Family Medicine; ATTEND Family Medicine
DX: A41.9 Sepsis, unspecified organism (principal); J18.9 Pneumonia, unspecified organism; J91.8 Pleural effusion in other conditions classified elsewhere; K21.9 Gastro-esophageal reflux disease without esophagitis
CPT/HCPCS: 36415; 71045; 71046; 71250; 71260; 76604; 76700; 80048; 80053; 80076; 81003; 82550; 83036; 83605; 83690; 83735; 84100; 84145; 84484; 85025; 85610; 85730; 87040; 87804; 93005; 94760; 96365; 96367; 96375; 99285; J0456; J0696; J1650; J2405; J2930; J7030; Q9967